=== PATIENT | male | born 1950 | race Caucasian/White ===

== ENCOUNTER → 2017-05-04 | Outpatient (CLI) | payer MEDICARE, BC ==
[~2017-05-04] MED LIST: CARV12.5 PO; CHLO125TA PO; FLINCHW5 PO; FLUO40CA PO; LOSA100T36 PO; LUTE40CA2 PO; PRAD150C PO; VITA-122 PO; VITA10002 PO
--- NOTE | 2017-05-08 08:49 | SLEEPCENT ---
DATE OF PROCEDURE: 05/04/2017 ORDERED BY: Dianne Jimenez INTERPRETATION: Nocturnal polysomnography was performed due to concern for the obstructive sleep apnea syndrome. 8 hours and 1 minute of data were reviewed. There were 372 minutes of sleep identified. Sleep latency was prolonged at 30 minutes. REM latency was normal at 78 minutes. Sleep architecture showed fragmentation. There were 3 REM periods appreciated. Overall sleep efficiency was 78%. The patient's EKG showed an irregular rhythm possibly atrial fibrillation. Ventricular response rate was 76 beats per minute. Heart rate ranged 60-90 beats per minute. EEG showed normal wave forms for awake and sleep. There were 127 respiratory events identified of 10 seconds in duration or greater for an apnea-hypopnea index of 20.5. The events were primarily obstructive not stage related, much more frequent in the supine posture but not exclusive to that posture. Respiratory events were associated with arousal 14 times per hour and oxygen desaturations into the 80s. There was also significant limb activity near continuous early in the study, improved later but the limb movement arousal index was 11.3. IMPRESSION: 1. Moderate obstructive sleep apnea syndrome (G47.33). Apnea-hypopnea index 20.5. 2. Periodic limb movement disorder (G47.61). Limb movement arousal index 11.3. RECOMMENDATION: The patient should be encouraged to return to the sleep disorder center for pressure therapy. In the interim, alcohol and sedative avoidance should be practiced and caution exercised during the operation of motor vehicles. Pending response to pressure therapy, interventions to reduce the frequency of arousals from limb activity may also be helpful.
== END ==
LOC: M SLEEP 20:00
PROVIDERS: ATTEND Nurse Practitioner Adult Health
DX: G47.33 Obstructive sleep apnea (adult) (pediatric) (principal)

== ENCOUNTER → 2017-06-02 | Outpatient (CLI) | payer MEDICARE, BC ==
--- NOTE | 2017-06-04 08:52 | SLEEPCENT ---
DATE OF PROCEDURE: 06/02/2017 REFERRING PHYSICIAN: Dianne Griffin. INTERPRETATION: Nocturnal polysomnography was performed for the re-titration of pressure therapy in this patient with obstructive sleep apnea syndrome. For testing a ResMed AirFit F20 full face mask of large size was used, 4 cm of water pressure were applied to the circuit and the lights were extinguished. A total of 7 hours and 52 minutes of data were reviewed. There were 367 minutes of sleep identified. Sleep latency was prolonged at 23 minutes. Rapid eye movement (REM) latency was prolonged at 199 minutes. Sleep architecture improved over the course of the study. There were two REM periods appreciated. Overall sleep efficiency was 78.9%. The patient's electrocardiogram (EKG) showed an irregular rhythm of atrial fibrillation with an average heart rate of 64 beats per minute. Pulse rate ranged 58-82, Electroencephalogram (EEG) showed mild coarsening and back ground, otherwise normal waveforms for awake and sleep. Best sleep was seen on a CPAP pressure of +7, with which the patient did sleep through REM late in the study. Some limb activity was identified as well. There were at leas three trains of 30 events and limb movement arousal index was 10.3. IMPRESSION: 1. Obstructive sleep apnea syndrome (G47.33). 2. Periodic limb movement disorder (G47.61). Limb movement arousal index 10.3. RECOMMENDATION: Nightly use of pressure therapy at 7 cm of water should be sufficient to address the patient's respiratory events. Interventions to reduce the frequency or arousal from limb activity are likely also to be needed to optimize the patient's sleep.
== END ==
LOC: M SLEEP 19:47
PROVIDERS: ATTEND Nurse Practitioner Adult Health
DX: G47.33 Obstructive sleep apnea (adult) (pediatric) (principal); G47.61 Periodic limb movement disorder

== ENCOUNTER 2018-06-19 16:09 | Emergency (ER) | payer MEDICARE, BC ==
[2018-06-19 16:58] LABS: BASO % 0.3 % (0.0-1.0); EOS # 0.1 10^3/uL (0.0-0.50); HEMATOCRIT 44.8 % (42.0-52.0); IMMATURE GRANULOCYTE % 0.5 % (0-3.0); LYMPH # 1.3 10^3/uL (1.5-4.5); LYMPH % 22.5 % (24.0-44.0); MEAN CORPUSCULAR HEMOGLOBIN 32.7 pg (27.0-33.0); MEAN CORPUSCULAR HGB CONC 33.5 g/dl (32.0-36.5); MEAN CORPUSCULAR VOLUME 97.6 fl (80.0-96.0); MONO # 0.4 10^3/uL (0.0-0.8); MONO % 7.3 % (0.0-5.0); NEUTROPHILS # 4.1 10^3/uL (1.8-7.7); NEUTROPHILS % 68.4 % (36.0-66.0); PLATELET COUNT, AUTOMATED 135 10^3/uL (150-450); RED BLOOD COUNT 4.59 10^6/uL (4.30-6.10); RED CELL DISTRIBUTION WIDTH 13.2 % (11.5-14.5); WHITE BLOOD COUNT 5.9 10^3/uL (4.0-10.0)
[2018-06-19] MEDS: NS 500 ML IV ×2 (17:00)
[2018-06-19] MEDS: ONDANSETRON 4MG/2ML VIAL (J2405) IV ×2 (17:00)
[2018-06-19 17:10] LABS: INR 1.09; PROTHROMBIN TIME 14.3 SECONDS (12.1-14.4)
[2018-06-19 17:11] LABS: PARTIAL THROMBOPLASTIN TIME 28.3 SECONDS (25.4-37.6)
[2018-06-19 17:26] LABS: ALBUMIN 3.8 GM/DL (3.2-5.2); ALBUMIN/GLOBULIN RATIO 1.06 (1.00-1.93); ALKALINE PHOSPHATASE 123 U/L (45-117); ALT/SGPT 33 U/L (12-78); ANION GAP 4 MEQ/L (8-16); AST/SGOT 26 U/L (7-37); BILIRUBIN,DIRECT 0.2 MG/DL (0.0-0.2); BILIRUBIN,TOTAL 0.6 MG/DL (0.2-1.0); BLOOD UREA NITROGEN 16 MG/DL (7-18); CALCIUM LEVEL 8.7 MG/DL (8.8-10.2); CARBON DIOXIDE LEVEL 32 MEQ/L (21-32); CHLORIDE LEVEL 104 MEQ/L (98-107); CPK CREATINE PHOSPHOKINASE 104 U/L (39-308); CREATININE FOR GFR 1.11 MG/DL (0.70-1.30); GLOMERULAR FILTRATION RATE > 60.0 (>49); GLUCOSE, FASTING 109 MG/DL (70-100); LIPASE 116 U/L (73-393); POTASSIUM SERUM 3.8 MEQ/L (3.5-5.1); SODIUM LEVEL 140 MEQ/L (136-145); TOTAL PROTEIN 7.4 GM/DL (6.4-8.2); TROPONIN I < 0.02 NG/ML (< 0.10)
[2018-06-19 17:32] LABS: MB/CK RELATIVE INDEX 1.92 (< OR =4); NT-PRO BNP 2247 PG/ML (<125)
[2018-06-19] MEDS: NS 1,000 ML IV ×2 (17:35)
[2018-06-19] MEDS: MORPHINE 4 MG/ML 1ML VIAL/SYRINGE (J2270) IV ×4 (17:53→20:39)
[2018-06-19] MEDS ORDERED: ISOVUE-370 76% 100ML VIAL (Q9967) As Ordered ×2 (18:20)
[2018-06-19] MEDS: PIPERACILLIN/TAZOBACTAM SOD 3.375 GM in D5W MINI-BAG PLUS 50 ML IV (20:47)
== END 2018-06-19 22:00 | disposition short-term general hospital (02) ==
LOC: M ED 16:09
DX: S36.539A Laceration of unspecified part of colon, initial encounter (principal); K91.89 Other postprocedural complications and disorders of digestive system; I48.91 Unspecified atrial fibrillation; I10 Essential (primary) hypertension; F17.200 Nicotine dependence, unspecified, uncomplicated
CPT/HCPCS: J2270

== ENCOUNTER 2019-05-20 10:45 | Outpatient (RCR) | payer MEDICARE, BC ==
[~2019-05-20 10:45] MED LIST changes: +ASPI81TA26 PO; +CYAN100049 PO; -LOSA100T36 PO; +LOSA100T50 PO; -PRAD150C PO; +PRAD150C6 PO; -VITA10002 PO
[2019-05-25] MEDS ORDERED: LEXA1TAB PO (08:32)
== END 2019-05-26 ==
LOC: M PT 10:45
PROVIDERS: ATTEND Orthopaedic Surgery
DX: Z47.89 Encounter for other orthopedic aftercare (principal); M51.36 Other intervertebral disc degeneration, lumbar region; M48.061 Spinal stenosis, lumbar region without neurogenic claudication; M47.896 Other spondylosis, lumbar region

== ENCOUNTER 2019-06-08 10:42 | Day surgery (SDC) | payer MEDICARE, BC ==
[~2019-06-08] VITALS: Ht 180.3 cm; Wt 117.9 kg
[~2019-06-08 10:42] MED LIST changes: +LEXA1TAB PO; +LIDOCAINE 2% INJ 100 MG/5 ML SDV (FOR ANES.) As Ordered ONE; +NS 1,000 ML IV ONE; +PROPOFOL 200 MG/20 ML VIAL As Ordered ONE
--- NOTE | 2019-06-08 11:44 | ROOR ---
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 Procedure: Pre-Anesthesia Assessment: - The heart rate, respiratory rate, oxygen saturations, blood pressure, adequacy of pulmonary ventilation, and response to care were monitored throughout the procedure. The Endoscope was introduced through the mouth, and advanced to the jejunum. The upper GI endoscopy was accomplished without difficulty. The patient tolerated the procedure well. Findings: Evidence of a Go-en-Y gastrojejunostomy was found. The gastrojejunal anastomosis was characterized by ulceration. This was traversed. This was biopsied with a cold forceps for histology. The examined esophagus was normal. The examined jejunum was normal. Impression: - Go-en-Y gastrojejunostomy with large (2 cm) deep post gastrojejunal anastomosis ulceration. No high risk stigmata of bleeding are seen. Biopsied. - Normal esophagus. - Normal examined jejunum. Recommendation: - Telephone endoscopist for pathology results in 2 weeks. - Use Prilosec (omeprazole) 40 mg PO BID indefinitely. - Use sucralfate tablets 1 gram PO QID for 1 month. - Repeat upper endoscopy in 3 months to check healing. - (the script was sent to your pharmacy on file) Julián Graves MD Julián GRAVES MD 06/08/2019 11:44:16 AM Electronically signed by Julián GRAVES MD Number of Addenda: 0 Note Initiated On: 06/08/2019 11:27 AM Estimated Blood Loss: Estimated blood loss: none.
[2019-06-08] MEDS ORDERED: PROPOFOL 200 MG/20 ML VIAL As Ordered ONE (11:59)
--- NOTE | 2019-06-08 12:12 | ROOR ---
Patient Name: Justice Roberts Procedure Date: 06/08/2019 11:28 AM Date of : 1950 Age: 68 Room: [facility] Gender: Male Note Status: Finalized Procedure: Colonoscopy Indications: Screening for colorectal malignant neoplasm Providers: Julián GRAVES MD Referring MD: IRIS GONZALEZ MD Requesting Provider: Medicines: Monitored Anesthesia Care Complications: No immediate complications. Procedure: Pre-Anesthesia Assessment: - The heart rate, respiratory rate, oxygen saturations, blood pressure, adequacy of pulmonary ventilation, and response to care were monitored throughout the procedure. The Colonoscope was introduced through the anus and advanced to the cecum, identified by appendiceal orifice and ileocecal valve. The colonoscopy was performed without difficulty. The patient tolerated the procedure well. The quality of the bowel preparation was good. Findings: The perianal and digital rectal examinations were normal. Two sessile polyps were found in the descending colon and ascending colon. The polyps were diminutive in size. These polyps were removed with a cold snare. Resection and retrieval were complete. Mild sigmoid diverticulosis and moderate internal hemorrhoids. The colon (entire examined portion) was moderately redundant. Advancing the scope required using manual pressure. Impression: - Two diminutive polyps in the descending colon and in the ascending colon, removed with a cold snare. Resected and retrieved. - Mild sigmoid diverticulosis and moderate internal hemorrhoids. - Redundant colon. Recommendation: - Repeat colonoscopy in 5 years for surveillance. - No ibuprofen, naproxen, or other non-steroidal anti-inflammatory drugs. Julián Graves MD Julián GRAVES MD 06/08/2019 12:11:33 PM Electronically signed by Julián GRAVES MD Number of Addenda: 0 Note Initiated On: 06/08/2019 11:28 AM Estimated Blood Loss: Estimated blood loss: none.
[2019-06-08 12:30] VITALS: BP 153/101
== END 2019-06-08 12:41 | disposition home or self-care (01) ==
LOC: M OPP 10:42
PROVIDERS: ATTEND Internal Medicine Gastroenterology
DX: Z12.11 Encounter for screening for malignant neoplasm of colon (principal); D12.4 Benign neoplasm of descending colon; D12.2 Benign neoplasm of ascending colon; Q43.8 Other specified congenital malformations of intestine; K28.4 Chronic or unspecified gastrojejunal ulcer with hemorrhage; Z98.0 Intestinal bypass and anastomosis status

== ENCOUNTER → 2019-10-25 | Outpatient (CLI) | payer MEDICARE, BC ==
[~2019-10-25] MED LIST changes: +D 202000 PO; -LIDOCAINE 2% INJ 100 MG/5 ML SDV (FOR ANES.) As Ordered ONE; -NS 1,000 ML IV ONE; +OMEP40CA97 PO; -PROPOFOL 200 MG/20 ML VIAL As Ordered ONE; +SUCR1TA PO
[2019-10-25 11:42] LABS: HEMATOCRIT 42.8 % (42.0-52.0); HEMOGLOBIN 13.9 g/dl (13.5-17.5); MEAN CORPUSCULAR HGB CONC 32.5 g/dl (32.0-36.5); MEAN CORPUSCULAR VOLUME 98.6 fl (80.0-96.0); PLATELET COUNT, AUTOMATED 135 10^3/uL (150-450); RED BLOOD COUNT 4.34 10^6/uL (4.30-6.10); WHITE BLOOD COUNT 4.7 10^3/uL (4.0-10.0)
[2019-10-25 11:52] LABS: INR 1.21
[2019-10-25 12:06] LABS: ERYTHROCYTE SEDIMENTATION RATE 7 mm/hr (0-20)
[2019-10-25 12:13] LABS: ALBUMIN 3.7 GM/DL (3.2-5.2); ALT/SGPT 24 U/L (12-78); BILIRUBIN,TOTAL 1.1 MG/DL (0.2-1.0); BLOOD UREA NITROGEN 12 MG/DL (7-18); CALCIUM LEVEL 9.1 MG/DL (8.8-10.2); CARBON DIOXIDE LEVEL 32 MEQ/L (21-32); CHLORIDE LEVEL 104 MEQ/L (98-107); CREATININE FOR GFR 1.19 MG/DL (0.70-1.30); GLOMERULAR FILTRATION RATE > 60.0 (>42); GLUCOSE, FASTING 106 MG/DL (70-100); POTASSIUM SERUM 3.9 MEQ/L (3.5-5.1); SODIUM LEVEL 140 MEQ/L (136-145); TOTAL PROTEIN 6.6 GM/DL (6.4-8.2)
--- NOTE | 2019-10-26 07:05 | ECGEPIP ---
[facility] Test Date: 2019-10-25 Pat Name: AIDEE GRAF Department: Room: - Gender: Male [employer]: [facility] : 1950 Requested By: Hua Daniel Order Number: [id number] Reading MD: Song Lozano Measurements Intervals [place] Rate: 53 P: [place]: 0 QRS: 60 QRSD: 94 T: 48 QT: 425 QTc: 400 Interpretive Statements Atrial fibrillation with a slow ventricular response Minor repolarization abnormalities No see if you change since prior tracing of 06/19/2018 Electronically Signed on 10-26-2019 7:04:52 EST by Song Lozano
== END ==
LOC: M RAD 10:40
PROVIDERS: ATTEND Orthopaedic Surgery
DX: M17.12 Unilateral primary osteoarthritis, left knee (principal); Z79.899 Other long term (current) drug therapy

== ENCOUNTER 2019-11-10 08:19 | Inpatient (IN) | payer MEDICARE, BC ==
--- NOTE | 2019-10-25 11:38 | REP ---
Two-view chest: 10/25/2019. Indication: Preoperative assessment. Comparison: 06/19/2018. Findings: The lungs are clear. There is no pleural effusion or pneumothorax. Multilevel degenerative sequelae of the thoracic spine are present. The cardiomediastinal silhouette is unremarkable. There is elevation of the left hemidiaphragm. The pressure: No acute cardiopulmonary process. Electronically Signed by Joe Kat DO 10/25/2019 11:29 A
--- NOTE | 2019-11-05 18:25 | HPE ---
DATE OF ADMISSION: 11/10/2019 ATTENDING PHYSICIAN: Dr. Hua Daniel CHIEF COMPLAINT: Left knee pain. HISTORY OF PRESENT ILLNESS: Mr. Roberts is a pleasant 69-year-old male with progressively worsening left knee pain and stiffness. He has failed to improve with conservative treatment. He has elected for surgery for his continued symptoms. He has pain with weightbearing activities and his activities of daily living. X-rays of his knee are notable for advanced osteoarthritis of the left knee joint. He has consented for a left total knee arthroplasty by Dr. Hua Daniel. Medical optimization was performed by Dr. Louise's office. ALLERGIES: No known allergies. CURRENT MEDICATIONS: - one aspirin a day - Lexapro once a day - pantoprazole 40 mg twice a day - carvedilol 125 mg once a day - chlorthalidone 25 mg half a tablet once a day - losartan 100 mg a day - vitamin D3 2000 units a day - iron supplement 324 mg a day - vitamin B12 500 mg a day PAST MEDICAL HISTORY: Includes high blood pressure and atrial fibrillation. PAST SURGICAL HISTORY: Includes right knee arthroscopy times two, left knee arthroscopy, and carpal tunnel releases on the right. SOCIAL HISTORY: This gentleman is retired. He quit smoking, did have 1-2 cigarettes a week several years ago. Occasionally drinks alcohol. FAMILY HISTORY: Noncontributory. REVIEW OF SYSTEMS: The patient denies chest pain, heart palpitations, cough, wheezing, difficulty breathing and shortness of breath. He denies abdominal pain, nausea, vomiting, diarrhea or constipation. He denies recent upper respiratory infection and urinary tract infection symptoms. He does complain of persistent pain in his left knee and pain with weightbearing activities in the left knee. PHYSICAL EXAMINATION: GENERAL: He is a well-nourished, well-developed, in no acute distress, alert male patient. He ambulates with a moderate limp favoring the left lower extremity. He is not using assistive devices. VITAL SIGNS: He is 67 inches tall, weighs 257.4 pounds, temperature 97.1, blood pressure 130/80, pulse 62, respirations of 15. Neck was supple without adenopathy or jugular venous distension. Lungs were clear to auscultation without rales or wheeze. Heart showed an irregular rate and rhythm. No murmurs, gallops or rubs. ABDOMEN: Bowel sounds were present. EXTREMITIES: Examination of the knee revealed intact skin. The patient had decreased range of motion due pain and stiffness. The limb is neurovascularly intact. LABORATORY DATA: Prothrombin time 15.0, INR 1.21. CBC showed an MCV of 98.6 and a platelet count of 135, sedimentation rate of 7, otherwise within normal limits. Glucose 106, BUN 12, creatinine 1.19, sodium 140, potassium 3.9. Chest x-ray showed no acute cardiopulmonary disease processes. EKG showed atrial fibrillation with slow ventricular response at 53 beats per minute. IMPRESSION: Symptomatic osteoarthritis of the left knee joint. PLAN: Consented for a left total knee arthroplasty by Dr. Hua Daniel.
[~2019-11-10] VITALS: Ht 180.3 cm; Wt 117.9 kg
[~2019-11-10 08:19] MED LIST changes: +LIDOCAINE 1% MDV 20ML VIAL SQ PRN; +LR 1,000 ML IV ONE; +ceFAZolin SOD 1 GM in D5W MINI-BAG PLUS 50 ML IV ONE; +ceFAZolin SOD 2 GM in IV 1 EA IV ONE
--- NOTE | 2019-11-10 09:33 | IPN ---
DATE: 11/10/2019 The patient is seen and examined. He wished to go ahead with a left total knee arthroplasty. He understands the nature of this, the risks of bleeding, infection, damage to nerves, vessels, persistent pain, wear loosening, blood clots, medical problems, , among others. He understands that his obesity and BMI make him a substantially higher risk for perioperative complications. Preop clearance was obtained.
[2019-11-10] MEDS ORDERED: propofoL 200 MG/20 ML VIAL As Ordered ONE ×3 (09:39→11:25)
[2019-11-10] MEDS ORDERED: MIDAZOLAM INJ 2 MG/2 ML VIAL (J2250) As Ordered ONE ×2 (09:39→10:28)
[2019-11-10] MEDS ORDERED: TRANEXAMIC ACID 100 MG/ML 10ML VIAL As Ordered ONE ×2 (10:05→10:31)
[2019-11-10] MEDS ORDERED: ceFAZolin 1GM INJ (J0690 PER 500MG) As Ordered ONE (10:05)
[2019-11-10] MEDS ORDERED: EPINEPHrine INJ 1 MG/ML 1ML VIAL As Ordered ONE ×2 (10:06→10:31)
[2019-11-10] MEDS ORDERED: BUPIVACAINE LIPOSOME/PF 1.3% 20ML VIAL (13.3MG/ML)(EXPAREL)(C9290 PER1MG) As Ordered ONE (10:06)
[2019-11-10] MEDS ORDERED: fentaNYL 100 MCG/2 ML INJECTION (J3010) As Ordered ONE (10:28)
[2019-11-10] MEDS ORDERED: fentaNYL 100 MCG/2 ML INJECTION (J3010) IV ONE (11:00)
[2019-11-10] MEDS ORDERED: MIDAZOLAM INJ 2 MG/2 ML VIAL (J2250) IV ONE (11:00)
[2019-11-10] MEDS ORDERED: ceFAZolin SOD 1 GM in D5W MINI-BAG PLUS 50 ML IV SCH (13:15)
[2019-11-10] MEDS ORDERED: ceFAZolin SOD 2 GM in IV 1 EA IV SCH (13:15)
[2019-11-10] MEDS ORDERED: BUPIVACAINE/EPIN 0.25% 30 ML VIAL ONE (13:30)
[2019-11-10] MEDS ORDERED: dexameTHASONE 10 MG/1 ML VIAL PRES.FREE (J1100) ONE (13:30)
[2019-11-10] MEDS ORDERED: LIDOCAINE 1% MDV 20ML VIAL ONE (13:30)
[2019-11-10] MEDS ORDERED: fentaNYL 100 MCG/2 ML INJECTION (J3010) IV PRN (14:00)
[2019-11-10] MEDS ORDERED: ONDANSETRON 4MG/2ML VIAL (J2405) IV PRN ×2 (14:00→15:00)
[2019-11-10] MEDS ORDERED: oxyCODONE 5MG TAB PO PRN (14:00)
[2019-11-10] MEDS ORDERED: LR 1,000 ML IV SCH ×2 (14:00→15:00)
--- NOTE | 2019-11-10 14:11 | REP ---
LEFT KNEE, TWO VIEWS: Two views left knee performed. There is a total knee prosthesis in good position. Structures are intact and well aligned. Metallic skin valentina are seen anteriorly. Postsurgical air is seen anteriorly in the soft tissues. Electronically Signed by Matt Jimenez MD 11/10/2019 05:39 P
[2019-11-10] MEDS ORDERED: ACETAMINOPHEN TAB 650MG DOSE (2X325MG) PO PRN (15:00)
[2019-11-10] MEDS ORDERED: MORPHINE 2 MG/ML 1ML VIAL (J2270) IV PRN ×2 (15:00)
[2019-11-10 15:13] VITALS: BP 170/112
[2019-11-10 15:39] VITALS: BP 169/114
--- NOTE | 2019-11-10 15:56 | CR.PDOC ---
General Date of Consultation: Nov 10, 2019 Consultation REASON FOR CONSULTATION/CHIEF COMPLAINT: L. knee pain HISTORY OF PRESENT ILLNESS: Patient is 69M with PMH OA with chronic L. knee pain, Afib, HTN, KARLA presented for L. knee TKA now post op. He reports having ongoing pain in his L knee due to arthritis for a period of time not relieved with conservative therapy. He currently denies any pain/discomfort in his knee or anywhere on his body. Reports no other complaints including chest pain, SOB, fever, chills, nausea, vomiting. PAST MEDICAL HISTORY: Refer to HPI PAST SURGICAL HISTORY: R&Y bypass surgery b/l knee surgery Cholecystectomy Appendectomy SOCIAL HISTORY: Occasional cigar and social alcohol Denies illicit drug use. FAMILY HISTORY: Father- Parkinson disease Mother- Pick's disease ALLERGIES: Please see below. REVIEW OF SYSTEMS: 10 point review of system negative except as stated in HPI HOME MEDICATIONS: Please see below. PHYSICAL EXAMINATION: General: Alert Eyes: Normal sclera, EOMI HENT: Atraumatic Cardiovascular: Normal rate, normal rhythm. Pulmonary: Clear to auscultation b/l, no wheezing GI: Soft, nontender, nondistended MSK: LLE in dressing with numbness at this time, not tender to palpation. Skin: Warm and dry Neuro: CN grossly intact. No focal deficits. Psych: oriented x 3 LABORATORY DATA: See below. IMAGING: L. knee XR- Two views left knee performed. There is a total knee prosthesis in good position. Structures are intact and well aligned. Metallic skin valentina are seen anteriorly. Postsurgical air is seen anteriorly in the soft tissues. MICROBIOLOGY: Please see below. ASSESSMENT AND PLAN: 1. L. knee OA s/p L. TKA - Pain control. Orthopedic following. - PT eval and treatment. - Xarelto for VTE ppx. 2. HTN - c/w Coreg, chlorthalidone and Losartan. - Monitor BP. 3. Afib - previously on Pradaxa but held due to PUD bleed. - rate controlled on BB. - On Xarelto for Orthopedic surgery for VTE ppx but not dosed for Afib. 4. KARLA - Night time CPAP at home. 5. PUD - Supposed to get endoscopy to evaluate ulcer as outpatient but need to move back due to knee surgery. - Previously on Pradaxa for Afib but held due to bleed. - on VTE ppx dose of Xarelto now, unsure if the risk outweights the benefits at this time. - Will monitor Hb and evidence of bleed. If hb drops or bleeding noted, would recommend stopping Xarelto. DVT ppx: Xarelto Vital Signs/I&O Vital Signs Date Time Temp Pulse Resp B/P (MAP) Pulse Ox O2 Delivery O2 Flow Rate FiO2 11/10/19 14:15 67 18 177/96 (123) 98 Room Air 11/10/19 13:55 97.1 11/10/19 11:00 2 Allergies Coded Allergies: No Known Allergies (Unverified , 05/25/19) Home Medications Scheduled Aspirin (Aspirin EC) 81 Mg Tab, 1 TAB PO DAILY for pain for 30 Days, #30 (Reported) Carvedilol (Carvedilol) 12.5 Mg Tab, 12.5 MG PO BID, (Reported) Chlorthalidone (Chlorthalidone) 12.5 Mg Halftab, 12.5 MG PO QPM, (Reported) Cholecalciferol (Vitamin D3) (Vitamin D3) 2,000 Unit Tablet, 2,000 UNIT PO DAILY, (Reported) Cyanocobalamin (Vitamin B-12) (Vitamin B-12) 1,000 Mcg Tab, 1,000 MCG PO DAILY, (Reported) Escitalopram Oxalate (Lexapro) 10 Mg Tablet, 20 MG PO DAILY, (Reported) Losartan Potassium (Losartan Potassium) 100 Mg Tab, 100 MG PO DAILY, (Reported) Lutein (Lutein) 40 Mg Cap, 40 MG PO DAILY, (Reported) Omeprazole (Omeprazole) 40 Mg Capsule.dr, 40 MG PO BID, (Reported) Sucralfate (Sucralfate) 1 Gm Tablet, 1 GM PO ACHS, (Reported) NOVA CHRISTOPHER MD Nov 10, 2019 15:56
[2019-11-10 16:10] VITALS: BP 158/100
[2019-11-10] MEDS: LOSARTAN 50 MG TAB PO SCH (16:16)
[2019-11-10 16:45] VITALS: BP 165/85
[2019-11-10] MEDS: SUCRALFATE 1 GM TAB PO SCH ×2 (17:18→20:52)
[2019-11-10 17:45] VITALS: BP 155/80
[2019-11-10] MEDS: ceFAZolin SOD 1 GM in D5W MINI-BAG PLUS 50 ML IV SCH (18:49)
[2019-11-10 20:41] VITALS: BP 163/95
[2019-11-10] MEDS: OMEPRAZOLE 20 MG CAP PO SCH (20:51)
[2019-11-10] MEDS: ceFAZolin SOD 2 GM in IV 1 EA IV SCH (20:51)
[2019-11-10] MEDS: CARVedilol 12.5 MG TAB PO SCH (20:52)
[2019-11-10] MEDS: PERCOCET 5MG/325MG TAB PO PRN (20:52)
[2019-11-10] MEDS ORDERED: CHLORTHALIDONE 12.5MG PER 1/2 TABLET PO SCH (21:00)
[2019-11-11] MEDS: PERCOCET 5MG/325MG TAB PO PRN ×3 (01:09→12:10)
[2019-11-11 02:43] VITALS: BP 123/80
[2019-11-11] MEDS: ceFAZolin SOD 1 GM in D5W MINI-BAG PLUS 50 ML IV SCH (03:32)
[2019-11-11] MEDS: ceFAZolin SOD 2 GM in IV 1 EA IV SCH (04:28)
[2019-11-11 06:19] VITALS: BP 123/82
[2019-11-11] MEDS ORDERED: PERC5TAB12 PO (06:41)
[2019-11-11] MEDS ORDERED: XARE10TA PO (06:41)
[2019-11-11 07:37] LABS: BLOOD UREA NITROGEN 15 MG/DL (7-18); CALCIUM LEVEL 8.4 MG/DL (8.8-10.2); CARBON DIOXIDE LEVEL 28 MEQ/L (21-32); CHLORIDE LEVEL 105 MEQ/L (98-107); CREATININE FOR GFR 1.11 MG/DL (0.70-1.30); GLOMERULAR FILTRATION RATE > 60.0 (>42); GLUCOSE, FASTING 129 MG/DL (70-100); POTASSIUM SERUM 3.6 MEQ/L (3.5-5.1); SODIUM LEVEL 139 MEQ/L (136-145)
[2019-11-11 07:42] LABS: HEMATOCRIT 36.1 % (42.0-52.0); HEMOGLOBIN 11.6 g/dl (13.5-17.5); MEAN CORPUSCULAR HEMOGLOBIN 31.3 pg (27.0-33.0); MEAN CORPUSCULAR HGB CONC 32.1 g/dl (32.0-36.5); MEAN CORPUSCULAR VOLUME 97.3 fl (80.0-96.0); PLATELET COUNT, AUTOMATED 132 10^3/uL (150-450); RED BLOOD COUNT 3.71 10^6/uL (4.30-6.10); WHITE BLOOD COUNT 8.2 10^3/uL (4.0-10.0)
[2019-11-11] MEDS: SUCRALFATE 1 GM TAB PO SCH ×2 (08:19→12:09)
[2019-11-11] MEDS: OMEPRAZOLE 20 MG CAP PO SCH (08:19)
[2019-11-11] MEDS: CARVedilol 12.5 MG TAB PO SCH (08:23)
[2019-11-11 08:24] VITALS: BP 108/68
[2019-11-11] MEDS: LOSARTAN 50 MG TAB PO SCH (08:24)
[2019-11-11] MEDS ORDERED: propofoL 200 MG/20 ML VIAL As Ordered ONE (08:31)
[2019-11-11] MEDS ORDERED: LIDOCAINE 2% INJ 100 MG/5 ML SDV (FOR ANES.) As Ordered ONE (08:31)
[2019-11-11] MEDS ORDERED: MOM 30ML SUSPENSION UDC PO SCH (09:00)
[2019-11-11] MEDS ORDERED: ESCITALOPRAM OXALATE 10 MG TAB (LEXAPRO) PO SCH (09:00)
[2019-11-11] MEDS ORDERED: ASPIRIN 81 MG ENTERIC TAB PO SCH (09:00)
[2019-11-11] MEDS ORDERED: MIRALAX *UNIT DOSE* 17GM PACKET PO SCH (09:00)
--- NOTE | 2019-11-11 10:02 | RO ---
DATE OF PROCEDURE: 11/10/2019 PREOPERATIVE DIAGNOSIS: Left knee osteoarthritis. POSTOPERATIVE DIAGNOSIS: Left knee osteoarthritis. PROCEDURE: Left total knee arthroplasty using an Attune rotating platform, posterior stabilized size 8 femur and 8 tibia, 6 polyethylene, 38 patellar button. SURGEON: Hua Daniel MD COTTON BUYER: Yonis Jackson PA-C ESTIMATED BLOOD LOSS (EBL): 50. COMPLICATIONS: None. INDICATIONS: A 69-year-old gentleman who has had gradually worsening knee pain with severe arthritis. He wished to go ahead with a knee replacement. DESCRIPTION OF PROCEDURE: The patient was taken to the operating room, placed in supine position after spinal anesthesia was induced. The left lower extremity was prepped and draped in the usual sterile fashion. Time-out was performed. Tourniquet was inflated. A longitudinal incision was made over the anterior aspect of the knee. Sharp dissection was carried down through subcutaneous tissue. I performed a medial parapatellar arthrotomy per routine, flexed the knee up. This was really fairly difficult. I had to extend the incision in both directions in order to get the patella everted and the knee flexed up. I removed some osteophytes. I used a canal-initiating reamer on the femoral side, followed by the intramedullary guide set at 5 degrees of valgus and a 9-mm cut. This was pinned in placed, and the distal femoral cut was made. I protected soft tissues at all times. I then sized the femur to be an 8. Drill holes were placed in the end of the femur with the external rotation dialed in, and the cutting block was secured. I then made the remaining four cuts, which were relatively challenging given the size of the knee and difficulty with exposure and protecting soft tissues which we were able to do. I then placed the posterior retractor. I removed any osteophytes from around the knee and used the tibial alignment guide set at the appropriate amount of valgus and posterior slope. The proximal tibia cut was made, and I decided based on the flexion/extension gap at this point to take 2 more millimeters off the tibial side, which was done. I was able to protect the posterior cruciate ligament (PCL). I then used the sulcus guide to prepare the end of the femur, and the size 8 tibial tray fit nicely on the tibia. This was drilled and broached, and the trial components were placed, however, in flexion. The femoral component seemed to be pulled off, indicating that it was tight in flexion, even though I had dialed in the appropriate amount of posterior slope. I elected to go with posterior stabilized knee at this point. I was not going to be satisfied with the cruciate-retaining, given some tightness of the PCL. I went ahead with the box cut at this point and removed the center bone, removed the PCL, and placed the trial components. I had used a spacer block prior to this 7 polyethylene. I had also removed soft tissue and osteophytes from both sides of the knee prior to placement of the trial components. Once the posterior stabilized knee trial components were placed, I was much more satisfied with the range of motion. There was no pulling off of the femoral component, no spitting out of the polyethylene with flexion, and I was able to gain full extension with excellent stability in varus and valgus stress and excellent alignment. I had also done a medial release at the beginning of the procedure. The patella was then prepared. I freehand cut, removing about 7-8 mm of bone. I sized this to be a 38. Drill holes were placed, the trial button was placed, and the patella tracked quite nicely. I also placed drill holes in the end of the femur. The computer lab assistant prepared the bone cement in the modern technique, and I was able to then copiously irrigate the bony surfaces, dried them carefully, and injected the Exparel in the deep tissues. I then cemented on the components, removing excess bone cement. The polyethylene was inserted and again very pleased with the range of motion and stability. I cemented on the patella, held it in place with the patellar clamp, irrigated, placed the tranexamic acid (TXA) deep in the tissues, repaired the deep layer with #1 Vicryl suture in an interrupted fashion followed by a running Stratafix suture. The patellar clamp had been removed once the cement had hardened. Once the deep layer was closed, I deflated the tourniquet. I irrigated again and repaired the subcutaneous with 2-0 Vicryl and the skin with valentina. Sterile dressing was applied. He was taken to the recovery room in stable condition. There were no known complications. The plan will be routine postoperative. The computer lab assistant was instrumental in holding retractors and assisting in wound closure and assisting in mixing the bone cement and assisting in a fairly difficult exposure to the knee. This is coded as an unusually difficult procedure because of the patient's morbid obesity. He had a very large knee. This made exposure very difficult, and the size of the bone also added to the difficulty of the procedure, and we did have to convert to a posterior stabilized which added additional time.
--- NOTE | 2019-11-11 14:14 | IPNPDOC ---
Date Seen The patient was seen on 11/11/19. Progress Note SUBJECTIVE: Patient appears comfortable, reports some discomfort in the knee but no signi ficant pain. Discharged by primary and getting ready to go home. No acute events reported overnight. No bleeding reported. OBJECTIVE PHYSICAL EXAMINATION: General: Alert Eyes: Normal sclera, EOMI HENT: Atraumatic Cardiovascular: Normal rate, normal rhythm. Pulmonary: Clear to auscultation b/l, no wheezing GI: Soft, nontender, nondistended MSK: LLE in dressing with partial saturating Skin: Warm and dry Neuro: CN grossly intact. No focal deficits. Psych: oriented x 3 LABORATORY DATA: See below. IMAGING: L. knee XR- Two views left knee performed. There is a total knee prosthesis in good position. Structures are intact and well aligned. Metallic skin valentina are seen anteriorly. Postsurgical air is seen anteriorly in the soft tissues. MICROBIOLOGY: Please see below. ASSESSMENT AND PLAN: 1. L. knee OA s/p L. TKA - Pain control. Orthopedic following. - PT eval and treatment. - Xarelto for VTE ppx. 2. HTN - c/w Coreg, chlorthalidone and Losartan. - Monitor BP. 3. Afib - previously on Pradaxa but held due to PUD bleed. - rate controlled on BB. - On Xarelto for Orthopedic surgery for VTE ppx but not dosed for Afib. 4. KARLA - Night time CPAP at home. 5. PUD - Supposed to get endoscopy to evaluate ulcer as outpatient but need to move back due to knee surgery. - Previously on Pradaxa for Afib but held due to bleed. - monitor for evidence of bleed. If hb drops or bleeding noted, would recommend stopping Xarelto. DVT ppx: Xarelto VS, I&O, 24H, Fishbone Vital Signs/I&O Vital Signs Date Time Temp Pulse Resp B/P (MAP) Pulse Ox O2 Delivery O2 Flow Rate FiO2 11/11/19 12:10 18 11/11/19 08:24 108/68 11/11/19 08:23 74 11/11/19 06:19 97.4 98 11/11/19 02:43 Room Air 11/10/19 11:00 2 I&O- Last 24 Hours up to 6 AM 11/11/19 06:00 Intake Total 2530 ml Output Total 700 ml Balance 1830 ml Laboratory Data 24H LABS Laboratory Tests 2 11/11/19 06:38: Nucleated Red Blood Cells % (auto) 0.0, Anion Gap 6L, Glomerular Filtration Rate > 60.0, Calcium Level 8.4L CBC/BMP Laboratory Tests 11/11/19 06:38 NOVA CHRISTOPHER MD Nov 11, 2019 14:14
[2019-11-11] MEDS ORDERED: RIVAROXABAN 10 MG TAB (XARELTO) PO SCH (18:00)
== END 2019-11-11 13:00 | disposition home or self-care (01) | DRG 470 ==
LOC: M OR 08:19 → M MS5PR 14:45
PROVIDERS: ADMIT Orthopaedic Surgery; ATTEND Orthopaedic Surgery
PROC: 0SRD0J9 Replacement of Left Knee Joint with Synthetic Substitute, Cemented, Open Approach (ICD-10-PCS; principal; 2019-11-10 10:30)
DX: M17.12 Unilateral primary osteoarthritis, left knee (principal); I10 Essential (primary) hypertension; I48.91 Unspecified atrial fibrillation; Z79.899 Other long term (current) drug therapy; G47.33 Obstructive sleep apnea (adult) (pediatric); Z79.82 Long term (current) use of aspirin; K27.9 Peptic ulcer, site unspecified, unspecified as acute or chronic, without hemorrhage or perforation

== ENCOUNTER → 2020-03-28 | Outpatient (CLI) | payer MEDICARE, BC ==
[~2020-03-28] MED LIST changes: +ALLE24TA7 PO; +ECOT81TA5 PO; -LIDOCAINE 1% MDV 20ML VIAL SQ PRN; -LR 1,000 ML IV ONE; +PERC5TAB12 PO; +VITAD1000T PO; +XARE10TA PO; -ceFAZolin SOD 1 GM in D5W MINI-BAG PLUS 50 ML IV ONE; -ceFAZolin SOD 2 GM in IV 1 EA IV ONE
== END ==
LOC: M LABSMTC 09:37
PROVIDERS: ATTEND Anesthesiology
DX: Z01.818 Encounter for other preprocedural examination (principal); Z11.59 Encounter for screening for other viral diseases
CPT/HCPCS: C9803; U0003

== ENCOUNTER 2020-03-31 06:57 | Day surgery (SDC) | payer MEDICARE, BC ==
[~2020-03-31] VITALS: Ht 180.3 cm; Wt 120.8 kg
[2020-03-31] MEDS ORDERED: NS 1,000 ML IV ONE (08:15)
[2020-03-31] MEDS ORDERED: propofoL 200 MG/20 ML VIAL As Ordered ONE (08:17)
[2020-03-31] MEDS ORDERED: LIDOCAINE 2% 100MG/5ML SDV (FOR ANES.) As Ordered ONE (08:18)
[2020-03-31] MEDS ORDERED: CETACAINE SPRAY 5GM As Ordered ONE (08:47)
--- NOTE | 2020-03-31 08:53 | ROOR ---
Patient Name: Justice Roberts Procedure Date: 03/31/2020 8:32 AM Date of : 1950 Age: 69 Room: [facility] Gender: Male Note Status: Finalized Procedure: Upper GI endoscopy Indications: Follow-up of ulcer of the GI tract Providers: Julián GRAVES MD Referring MD: IRIS GONZALEZ MD Requesting Provider: Medicines: Monitored Anesthesia Care Complications: No immediate complications. Procedure: Pre-Anesthesia Assessment: - The heart rate, respiratory rate, oxygen saturations, blood pressure, adequacy of pulmonary ventilation, and response to care were monitored throughout the procedure. The Endoscope was introduced through the mouth, and advanced to the jejunum. The upper GI endoscopy was accomplished without difficulty. The patient tolerated the procedure well. Findings: The Z-line was variable. This was biopsied with a cold forceps for histology. 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 The gastrojejunal anastomosis was characterized by ulceration. This was biopsied with a cold forceps for histology. The examined jejunum was normal. Impression: - Z-line variable. Biopsied. - Go-en-Y gastrojejunostomy with gastrojejunal anastomosis characterized by a single 8 mm shallow erosion/ulceration on the jejunal side of anastomosis.(significantly improved from previous exam). Biopsied. - Normal examined jejunum. Recommendation: - Telephone endoscopist for pathology results in 2 weeks. - Use sucralfate tablets 1 gram PO BID. - Use Prilosec (omeprazole) 40 mg PO BID. - Observe patient's clinical course. Julián Graves MD Julián GRAVES MD 03/31/2020 8:52:42 AM Electronically signed by Julián GRAVES MD Number of Addenda: 0 Note Initiated On: 03/31/2020 8:32 AM Estimated Blood Loss: Estimated blood loss: none.
[2020-03-31 09:20] VITALS: BP 165/87
== END 2020-03-31 09:27 | disposition home or self-care (01) ==
LOC: M OPP 06:57
PROVIDERS: ATTEND Internal Medicine Gastroenterology
DX: K22.8 Other specified diseases of esophagus (principal); K28.9 Gastrojejunal ulcer, unspecified as acute or chronic, without hemorrhage or perforation; Z98.0 Intestinal bypass and anastomosis status; Z79.891 Long term (current) use of opiate analgesic; Z79.899 Other long term (current) drug therapy

== ENCOUNTER → 2020-10-17 | Outpatient (CLI) | payer SELFPAY ==
[~2020-10-17] MED LIST changes: +D31000TA2 PO; -VITAD1000T PO
== END ==
LOC: M LABSMTC 13:38
PROVIDERS: ATTEND Pediatrics
DX: Z20.828 Contact with and (suspected) exposure to other viral communicable diseases (principal)

== ENCOUNTER → 2020-11-06 | Outpatient (CLI) | payer MEDICARE, BC ==
[~2020-11-06] MED LIST changes: +GASTROGRAFIN SOLUTION 30ML (Q9963) As Ordered ONE; +ISOVUE-370 76% 100ML VIAL As Ordered ONE
--- NOTE | 2020-11-06 10:58 | REP ---
INDICATION: POST BARIATIC SURGERY, PERITONEAL ABSCESS. COMPARISON: 06/19/2018 TECHNIQUE: Axial contrast-enhanced images from the lung bases to the pubic symphysis using 100 cc Isovue 370 intravenous contrast material. Coronal and sagittal reformations obtained. This CT examination was performed using the following dose reduction techniques: Automated exposure control, adjustment of mA and/or kv according to the patient's size, and the use of iterative reconstruction technique. FINDINGS: Lung bases are clear. Visualized heart and pericardium normal. Atherosclerotic changes to the coronary arteries noted. Patient is again noted to be status post gastric bypass surgery and cholecystectomy. Liver, pancreas, bilateral adrenal glands and kidneys are normal. The spleen is relatively normal although subtle round 2.5 cm hypodense lesions possibly representing cysts cannot be excluded. Small and large bowel is without obstruction or acute inflammatory process. Few sigmoid diverticula suggested without acute diverticulitis. Pelvis demonstrates normal bladder and age-appropriate prostate/seminal vesicles. There is a 3.5 cm round soft tissue density in the inferior aspect of the left rectus muscle (images [id number]) which may represent small intramuscular hematoma and should be correlated with physical examination. No ascites. No free air. No adenopathy. Abdominal aorta and vasculature without aneurysm or dissection. Musculoskeletal structures demonstrate degenerative changes. IMPRESSION: 1. 3.5 cm round lesion in the left rectus muscle possibly representing hematoma and correlation is required. 2. Subtle relatively benign appearing 2.5 cm hypodense lesion in the spleen may represent small cysts. Consider outpatient ultrasound evaluation if necessary. 3. No ascites, focal inflammatory stranding, adenopathy, or drainable collection/abscess. <Electronically signed by Ciro Fonseca > 11/06/20 [id number]
== END ==
LOC: M RAD 09:48
PROVIDERS: ATTEND Physician Assistant
DX: D37.8 Neoplasm of uncertain behavior of other specified digestive organs (principal); K65.1 Peritoneal abscess; R58 Hemorrhage, not elsewhere classified; Z98.84 Bariatric surgery status
CPT/HCPCS: 74177; Q9963; Q9967

== ENCOUNTER 2021-02-22 11:25 | Emergency (ER) | payer MEDICARE, BC ==
[~2021-02-22] VITALS: Ht 180.3 cm; Wt 124.8 kg
[~2021-02-22 11:25] MED LIST changes: -GASTROGRAFIN SOLUTION 30ML (Q9963) As Ordered ONE; -ISOVUE-370 76% 100ML VIAL As Ordered ONE
--- NOTE | 2021-02-22 12:46 | REP ---
INDICATION: pain/swelling L, r/o torsion. COMPARISON: None. TECHNIQUE: Real-time sonographic evaluation of scrotum and contents performed. FINDINGS: The testicles are normal in size and echotexture, right testicle measuring 4.9 x 2.2 x 2.6 cm and left testicle 4.2 x 3.2 x 3.1 cm. There is no testicular mass or torsion. Blood flow is seen in each testicle with duplex Doppler evaluation. There is a 5 mm cyst in the head of the right epididymis. There is a moderate left hydrocele, with fluid containing debris. There are multiple thin septations throughout the hydrocele. IMPRESSION: No testicular mass or torsion. Moderate complex left hydrocele. <Electronically signed by Matt Jimenez > 02/22/21 [id number]
[2021-02-22] MEDS ORDERED: [UNRECOGNIZED DRUG - CODE] PO (12:55)
[2021-02-22] MEDS ORDERED: MISO200T56 PO (12:55)
[2021-02-22] MEDS ORDERED: ZINC30CA PO (12:55)
[2021-02-22] MEDS ORDERED: AMLO1TAB24 PO (12:55)
[2021-02-22 13:02] LABS: BASO % 0.3 % (0.0-1.0); EOS % 0.4 % (0.0-3.0); HEMATOCRIT 38.7 % (42.0-52.0); HEMOGLOBIN 12.5 g/dl (13.5-17.5); LYMPH # 0.5 10^3/uL (1.5-5.0); LYMPH % 6.8 % (24.0-44.0); MEAN CORPUSCULAR HEMOGLOBIN 31.6 pg (27.0-33.0); MEAN CORPUSCULAR HGB CONC 32.3 g/dl (32.0-36.5); MEAN CORPUSCULAR VOLUME 97.7 fl (80.0-96.0); MONO # 0.6 10^3/uL (0.0-0.8); MONO % 8.5 % (2.0-8.0); NEUTROPHILS # 5.9 10^3/uL (1.5-8.5); NEUTROPHILS % 83.6 % (36.0-66.0); PLATELET COUNT, AUTOMATED 114 10^3/uL (150-450); RED BLOOD COUNT 3.96 10^6/uL (4.30-6.10); WHITE BLOOD COUNT 7.1 10^3/uL (4.0-10.0)
[2021-02-22 13:22] LABS: BLOOD UREA NITROGEN 14 MG/DL (7-18); CALCIUM LEVEL 8.5 MG/DL (8.8-10.2); CARBON DIOXIDE LEVEL 29 MEQ/L (21-32); CHLORIDE LEVEL 103 MEQ/L (98-107); CREATININE FOR GFR 1.22 MG/DL (0.70-1.30); GLOMERULAR FILTRATION RATE > 60.0 (>42); GLUCOSE, FASTING 122 MG/DL (70-100); POTASSIUM SERUM 3.5 MEQ/L (3.5-5.1); SODIUM LEVEL 136 MEQ/L (136-145)
[2021-02-22] MEDS ORDERED: CIPROFLOXACIN 500MG TABLET PO ONE (15:10)
[2021-02-22 15:20] VITALS: BP 137/78
[2021-02-22] MEDS ORDERED: CIPR-249 PO (15:23)
--- NOTE | 2021-02-24 16:08 | ED PDOC ---
Post-Departure Follow-Up scrotal us faxed to aurelia rincon and rai for fu Brinda Lazaro MD February 24, 2021 16:08
== END 2021-02-22 15:34 | disposition home or self-care (01) ==
LOC: M ED 11:25
DX: N43.3 Hydrocele, unspecified (principal); N39.0 Urinary tract infection, site not specified; I48.91 Unspecified atrial fibrillation; K21.9 Gastro-esophageal reflux disease without esophagitis; F32.9 Major depressive disorder, single episode, unspecified; Z79.899 Other long term (current) drug therapy

== ENCOUNTER → 2021-03-08 | Outpatient (REF) | payer MEDICARE, BC ==
[~2021-03-08] MED LIST changes: +AMLO1TAB24 PO; +CIPR-249 PO; +MISO200T56 PO; +ZINC30CA PO; +[UNRECOGNIZED DRUG - CODE] PO
[2021-03-08 17:39] LABS: APPEARANCE, URINE CLEAR (CLEAR); BACTERIA, URINE AUTO NEGATIVE (NEGATIVE); BILIRUBIN, URINE AUTO NEGATIVE (NEGATIVE); BLOOD, URINE BLOOD NEGATIVE (NEGATIVE); COLOR, URINE YELLOW (YELLOW); GLUCOSE, URINE (UA) AUTO NEGATIVE (NEGATIVE); KETONE, URINE AUTO NEGATIVE (NEGATIVE); LEUKOCYTE ESTERASE, URINE AUTO NEGATIVE (NEGATIVE); NITRITE, URINE AUTO NEGATIVE (NEGATIVE); PROTEIN, URINE AUTO NEGATIVE (NEGATIVE); RBC, URINE AUTO 0 /HPF (0-3); SQUAMOUS EPITHELIAL CELL UR AU 0 /HPF (0-6); UROBILINOGEN, URINE AUTO 0.2 mg/dL (0.0-2.0); WBC, URINE AUTO 0 /HPF (0-3)
== END ==
LOC: M SMT 16:38
PROVIDERS: ATTEND Nurse Practitioner Women's Health
DX: N39.0 Urinary tract infection, site not specified (principal)
CPT/HCPCS: 51798; 81001; 87086; G0463

== ENCOUNTER → 2022-04-16 | Outpatient (CLI) | payer MEDICARE, BC ==
[~2022-04-16] MED LIST changes: -D31000TA2 PO; +LOSA100T45 PO; -LOSA100T50 PO; +OMEP40CA4 PO; -OMEP40CA97 PO; +VITA100093 PO
[2022-04-16 14:05] LABS: HEMATOCRIT 43.3 % (42.0-52.0); HEMOGLOBIN 14.1 g/dl (13.5-17.5); MEAN CORPUSCULAR HEMOGLOBIN 32.3 pg (27.0-33.0); MEAN CORPUSCULAR HGB CONC 32.6 g/dl (32.0-36.5); MEAN CORPUSCULAR VOLUME 99.3 fl (80.0-96.0); PLATELET COUNT, AUTOMATED 156 10^3/uL (150-450); RED BLOOD COUNT 4.36 10^6/uL (4.30-6.10)
[2022-04-16 14:39] LABS: HEMOGLOBIN A1c 5.3 %
[2022-04-16 15:46] LABS: ALBUMIN 3.9 GM/DL (3.2-5.2); ALT/SGPT 23 U/L (12-78); BILIRUBIN,TOTAL 0.7 MG/DL (0.2-1.0); BLOOD UREA NITROGEN 16 MG/DL (7-18); CALCIUM LEVEL 9.6 MG/DL (8.8-10.2); CARBON DIOXIDE LEVEL 29 MEQ/L (21-32); CHLORIDE LEVEL 104 MEQ/L (98-107); CHOLESTEROL LEVEL 143 MG/DL (<200); CHOLESTEROL RISK RATIO 2.234 (<5); GLOMERULAR FILTRATION RATE > 60.0 (>42); GLUCOSE, FASTING 92 MG/DL (70-100); HDL CHOLESTEROL 64 MG/DL (>40); LDL CHOLESTEROL 65 MG/DL (<100); NON-HDL-C 79 MG/DL; POTASSIUM SERUM 4.7 MEQ/L (3.5-5.1); SODIUM LEVEL 141 MEQ/L (136-145); TOTAL PROTEIN 7.1 GM/DL (6.4-8.2); TRIGLYCERIDES LEVEL 72 MG/DL (<150)
== END ==
LOC: M PLALAB 10:36
PROVIDERS: ATTEND Nurse Practitioner Adult Health
DX: E78.2 Mixed hyperlipidemia (principal); I10 Essential (primary) hypertension; I48.91 Unspecified atrial fibrillation; Z13.1 Encounter for screening for diabetes mellitus; Z13.29 Encounter for screening for other suspected endocrine disorder; Z79.899 Other long term (current) drug therapy

== ENCOUNTER 2022-07-14 19:52 | Emergency (ER) | payer MEDICARE, BC ==
[~2022-07-14] VITALS: Ht 180.3 cm; Wt 125.0 kg
[2022-07-14 20:00] VITALS: BP 109/68
[2022-07-14] MEDS ORDERED: TRAM50TA2 PO (20:11)
[2022-07-14] MEDS ORDERED: MORPHINE 4 MG/ML 1ML VIAL/SYRINGE IV ONE (22:25)
[2022-07-14 22:46] LABS: BASO % 0.1 % (0.0-1.0); EOS % 0.4 % (0.0-3.0); HEMATOCRIT 40.4 % (42.0-52.0); HEMOGLOBIN 13.3 g/dl (13.5-17.5); LYMPH # 1.2 10^3/uL (1.5-5.0); LYMPH % 12.6 % (24.0-44.0); MEAN CORPUSCULAR HEMOGLOBIN 31.1 pg (27.0-33.0); MEAN CORPUSCULAR HGB CONC 32.9 g/dl (32.0-36.5); MEAN CORPUSCULAR VOLUME 94.6 fl (80.0-96.0); MONO # 0.5 10^3/uL (0.0-0.8); MONO % 5.8 % (2.0-8.0); NEUTROPHILS # 7.4 10^3/uL (1.5-8.5); NEUTROPHILS % 80.6 % (36.0-66.0); PLATELET COUNT, AUTOMATED 141 10^3/uL (150-450); RED BLOOD COUNT 4.27 10^6/uL (4.30-6.10); WHITE BLOOD COUNT 9.1 10^3/uL (4.0-10.0)
[2022-07-15] MEDS ORDERED: HYDR-4571 PO (00:04)
[2022-07-15] MEDS ORDERED: PERCOCET 5MG/325MG TAB PO ONE (00:30)
== END 2022-07-15 01:04 | disposition home or self-care (01) ==
LOC: M ED 19:52
DX: S42.202A Unspecified fracture of upper end of left humerus, initial encounter for closed fracture (principal); W19.XXXA Unspecified fall, initial encounter; Y92.89 Other specified places as the place of occurrence of the external cause; I48.91 Unspecified atrial fibrillation; I10 Essential (primary) hypertension; K21.9 Gastro-esophageal reflux disease without esophagitis; M54.9 Dorsalgia, unspecified; G47.33 Obstructive sleep apnea (adult) (pediatric); F41.9 Anxiety disorder, unspecified; F32.9 Major depressive disorder, single episode, unspecified; Z98.84 Bariatric surgery status; F17.290 Nicotine dependence, other tobacco product, uncomplicated; F10.10 Alcohol abuse, uncomplicated; Z79.82 Long term (current) use of aspirin; Z79.899 Other long term (current) drug therapy
CPT/HCPCS: 73030; 73060; 73080; 80047; 85025; 87635; 93005; 96374; 99284; J2270

== ENCOUNTER → 2022-07-22 | Outpatient (CLI) | payer MEDICARE, BC ==
[~2022-07-22] MED LIST changes: +HYDR-4571 PO; +TRAM50TA2 PO
== END ==
LOC: M SOG 09:23
PROVIDERS: ATTEND Physician Assistant
DX: S42.212A Unspecified displaced fracture of surgical neck of left humerus, initial encounter for closed fracture (principal); X58.XXXA Exposure to other specified factors, initial encounter; Y92.9 Unspecified place or not applicable; Y93.9 Activity, unspecified; Y99.9 Unspecified external cause status

== ENCOUNTER → 2022-08-02 | Outpatient (CLI) | payer MEDICARE, BC | LOC: M SOG 13:21 | PROVIDERS: ATTEND Orthopaedic Surgery Hand Surgery | DX: S42.202A Unspecified fracture of upper end of left humerus, initial encounter for closed fracture (principal); X58.XXXA Exposure to other specified factors, initial encounter; Y92.9 Unspecified place or not applicable; Y93.9 Activity, unspecified; Y99.9 Unspecified external cause status ==

== ENCOUNTER 2022-08-19 09:23 | Outpatient (RCR) | payer MEDICARE, BC | END 2022-08-26 23:59 | disposition home or self-care (01) | LOC: M PT 09:23 | PROVIDERS: ATTEND Orthopaedic Surgery Hand Surgery | DX: S42.202A Unspecified fracture of upper end of left humerus, initial encounter for closed fracture (principal); X58.XXXA Exposure to other specified factors, initial encounter; Y92.9 Unspecified place or not applicable; Y93.9 Activity, unspecified; Y99.9 Unspecified external cause status ==

== ENCOUNTER 2022-09-06 09:11 | Outpatient (RCR) | payer MEDICARE, BC | END 2022-09-25 | LOC: M PT 09:11 | PROVIDERS: ATTEND Orthopaedic Surgery Hand Surgery | DX: M25.512 Pain in left shoulder (principal) ==

== ENCOUNTER 2022-10-24 10:41 | Outpatient (RCR) | payer MEDICARE, BC | END 2022-10-26 | LOC: M PT 10:41 | PROVIDERS: ATTEND Orthopaedic Surgery Hand Surgery | DX: M25.512 Pain in left shoulder (principal) ==

== ENCOUNTER → 2022-11-13 | Outpatient (CLI) | payer MEDICARE, BC ==
[2022-11-13 13:19] LABS: HEMATOCRIT 45.6 % (42.0-52.0); HEMOGLOBIN 14.6 g/dl (13.5-17.5); MEAN CORPUSCULAR HEMOGLOBIN 30.7 pg (27.0-33.0); PLATELET COUNT, AUTOMATED 161 10^3/uL (150-450); RED BLOOD COUNT 4.75 10^6/uL (4.30-6.10); WHITE BLOOD COUNT 5.9 10^3/uL (4.0-10.0)
[2022-11-13 13:46] LABS: MAGNESIUM LEVEL 2.1 MG/DL (1.8-2.4)
[2022-11-13 13:46] LABS: HEMOGLOBIN A1c 5.3 % (4.0-6.0)
[2022-11-13 13:47] LABS: THYROID STIMULATING HORMONE 1.109 uIU/ML (0.55-4.78)
[2022-11-13 13:48] LABS: ALKALINE PHOSPHATASE 146 U/L (46-116); ALT/SGPT 25 U/L (7.0-40); AST/SGOT 29 U/L (<34); BILIRUBIN,TOTAL 0.8 MG/DL (0.3-1.2); BLOOD UREA NITROGEN 17 MG/DL (9-23); CALCIUM LEVEL 9.2 MG/DL (8.3-10.6); CARBON DIOXIDE LEVEL 30 MMOL/L (20-31); CHLORIDE LEVEL 104 MMOL/L (98-107); CHOLESTEROL LEVEL 148 MG/DL (<200); CHOLESTEROL RISK RATIO 2.46 (<5); CREATININE FOR GFR 1.17 MG/DL (0.70-1.30); GLOMERULAR FILTRATION RATE > 60.0 (>42); GLUCOSE, FASTING 94 MG/DL (74-106); HDL CHOLESTEROL 60.1 MG/DL (>40); LDL CHOLESTEROL 70.9 MG/DL (<100); NON-HDL-C 88 MG/DL; POTASSIUM SERUM 4.4 MMOL/L (3.5-5.1); SODIUM LEVEL 141 MMOL/L (136-145); TRIGLYCERIDES LEVEL 85 MG/DL (<150)
== END ==
LOC: M PLALAB 11:01
PROVIDERS: ATTEND Nurse Practitioner Adult Health
DX: I48.91 Unspecified atrial fibrillation (principal); Z13.1 Encounter for screening for diabetes mellitus; I10 Essential (primary) hypertension; E78.2 Mixed hyperlipidemia; Z13.29 Encounter for screening for other suspected endocrine disorder

== ENCOUNTER → 2022-11-19 | Outpatient (CLI) | payer MEDICARE, BC | LOC: M SOG 11:29 | PROVIDERS: ATTEND Orthopaedic Surgery Hand Surgery | DX: S42.202D Unspecified fracture of upper end of left humerus, subsequent encounter for fracture with routine healing (principal) ==

== ENCOUNTER → 2023-01-16 | Outpatient (CLI) | payer MEDICARE, BC | LOC: M SOG 08:13 | PROVIDERS: ATTEND Physician Assistant | DX: S42.202D Unspecified fracture of upper end of left humerus, subsequent encounter for fracture with routine healing (principal); Y93.9 Activity, unspecified; Y92.9 Unspecified place or not applicable ==

== ENCOUNTER → 2023-01-31 | Outpatient (CLI) | payer MEDICARE, BC | LOC: M RAD 07:20 | PROVIDERS: ATTEND Nurse Practitioner Adult Health | DX: Z12.2 Encounter for screening for malignant neoplasm of respiratory organs (principal); F17.210 Nicotine dependence, cigarettes, uncomplicated; J84.10 Pulmonary fibrosis, unspecified; R91.1 Solitary pulmonary nodule ==

== ENCOUNTER 2023-07-04 10:17 | Day surgery (SDC) | payer MEDICARE, BC ==
[~2023-07-04] VITALS: Ht 180.3 cm; Wt 120.2 kg
[~2023-07-04 10:17] MED LIST changes: -LOSA100T45 PO; +LOSA100T46 PO; -MISO200T56 PO; +MISO200T83 PO; +NS 1,000 ML IV ONE
[2023-07-04] MEDS ORDERED: propofoL 200 MG/20 ML VIAL As Ordered ONE ×2 (11:30→11:48)
[2023-07-04] MEDS ORDERED: LIDOCAINE 2% 100MG/5ML SDV (FOR ANES.) As Ordered ONE (11:30)
[2023-07-04] MEDS ORDERED: GLYCOPYRROLATE INJ 0.2 MG/ML 2 ML VIAL As Ordered ONE (11:30)
[2023-07-04 12:18] VITALS: TEMP 96.1
[2023-07-04 12:44] VITALS: BP 146/92; O2SAT 99
== END 2023-07-04 12:46 | disposition home or self-care (01) ==
LOC: M OPP 10:17
PROVIDERS: ATTEND Internal Medicine Gastroenterology
DX: Z86.010 Personal history of colon polyps (principal); K63.5 Polyp of colon; K57.30 Diverticulosis of large intestine without perforation or abscess without bleeding; K64.8 Other hemorrhoids; K31.A19 Gastric intestinal metaplasia without dysplasia, unspecified site; K22.70 Barrett's esophagus without dysplasia; Z98.0 Intestinal bypass and anastomosis status; K22.89 Other specified disease of esophagus; I10 Essential (primary) hypertension; I48.91 Unspecified atrial fibrillation; K26.9 Duodenal ulcer, unspecified as acute or chronic, without hemorrhage or perforation; M19.90 Unspecified osteoarthritis, unspecified site; F41.9 Anxiety disorder, unspecified; F32.A Depression, unspecified; G47.30 Sleep apnea, unspecified; F17.290 Nicotine dependence, other tobacco product, uncomplicated; Z79.82 Long term (current) use of aspirin; Z79.899 Other long term (current) drug therapy; Z81.8 Family history of other mental and behavioral disorders

== ENCOUNTER → 2023-11-20 | Outpatient (CLI) | payer MEDICARE, BC ==
[~2023-11-20] MED LIST changes: -NS 1,000 ML IV ONE
[2023-11-20 13:24] LABS: HEMATOCRIT 43.3 % (42.0-52.0); HEMOGLOBIN 13.7 g/dl (13.5-17.5); MEAN CORPUSCULAR HEMOGLOBIN 30.4 pg (27.0-33.0); MEAN CORPUSCULAR HGB CONC 31.6 g/dl (32.0-36.5); PLATELET COUNT, AUTOMATED 166 10^3/uL (150-450); RED BLOOD COUNT 4.51 10^6/uL (4.30-6.10); WHITE BLOOD COUNT 5.1 10^3/uL (4.0-10.0)
[2023-11-20 13:32] LABS: ALBUMIN 3.9 G/DL (3.2-5.2); ALKALINE PHOSPHATASE 126 U/L (46-116); ALT/SGPT 27 U/L (7.0-40); AST/SGOT 31 U/L (<34); BILIRUBIN,TOTAL 0.6 MG/DL (0.3-1.2); BLOOD UREA NITROGEN 16 MG/DL (9-23); CALCIUM LEVEL 9.1 MG/DL (8.3-10.6); CARBON DIOXIDE LEVEL 33 MMOL/L (20-31); CHLORIDE LEVEL 106 MMOL/L (98-107); CHOLESTEROL LEVEL 135 MG/DL (<200); CHOLESTEROL RISK RATIO 2.14 (<5); CREATININE FOR GFR 1.13 MG/DL (0.70-1.30); GLOMERULAR FILTRATION RATE > 60.0 (>42); GLUCOSE, FASTING 97 MG/DL (74-106); HDL CHOLESTEROL 62.9 MG/DL (>40); LDL CHOLESTEROL 56.5 MG/DL (<100); MAGNESIUM LEVEL 1.9 MG/DL (1.8-2.4); NON-HDL-C 72.1 MG/DL; POTASSIUM SERUM 4.2 MMOL/L (3.5-5.1); SODIUM LEVEL 142 MMOL/L (136-145); TOTAL PROTEIN 6.8 G/DL (5.7-8.2); TRIGLYCERIDES LEVEL 78 MG/DL (<150)
[2023-11-20 13:33] LABS: HEMOGLOBIN A1c 5.3 % (4.0-6.0)
[2023-11-20 13:36] LABS: FERRITIN 9.4 NG/ML (10.5-307.3)
[2023-11-20 13:37] LABS: THYROID STIMULATING HORMONE 2.158 uIU/ML (0.55-4.78)
== END ==
LOC: M PLALAB 07:53
PROVIDERS: ATTEND Nurse Practitioner Adult Health
DX: I48.91 Unspecified atrial fibrillation (principal); I10 Essential (primary) hypertension; Z13.1 Encounter for screening for diabetes mellitus; E78.2 Mixed hyperlipidemia; K21.9 Gastro-esophageal reflux disease without esophagitis; Q43.8 Other specified congenital malformations of intestine; F41.9 Anxiety disorder, unspecified; Z98.84 Bariatric surgery status; Z79.899 Other long term (current) drug therapy

== ENCOUNTER 2024-01-05 16:30 | Outpatient (CLI) | payer MEDICARE, BC ==
[~2024-01-05] VITALS: Ht 182.9 cm; Wt 115.9 kg
[2024-01-05 16:30] VITALS: BP 158/88; O2SAT 100
[~2024-01-05 16:30] MED LIST changes: +ALBUTEROL SULFATE 2.5MG/0.5ML INH NEB SOLN INH PRN; +EPINEPHrine INJ 1 MG/ML 1ML AMP IM PRN; +NS 1,000 ML IV SCH; +diphenhydrAMINE 50MG/ML VIAL IV PRN; +methylPREDNISolone 125MG 2ML VIAL IV PRN
[2024-01-05] MEDS: FERRIC CARBOXYMALTOSE INJ 750 MG in NS 250 ML (>50kg) IV ONE (16:34)
[2024-01-05 17:50] VITALS: BP 127/85; O2SAT 99
== END 2024-01-05 17:50 ==
LOC: M INFU 16:30
PROVIDERS: ATTEND Nurse Practitioner Adult Health
DX: D50.9 Iron deficiency anemia, unspecified (principal)
CPT/HCPCS: 96365; J1439

== ENCOUNTER → 2024-04-21 | Outpatient (CLI) | payer MEDICARE, BC ==
[~2024-04-21] MED LIST changes: -ALBUTEROL SULFATE 2.5MG/0.5ML INH NEB SOLN INH PRN; -EPINEPHrine INJ 1 MG/ML 1ML AMP IM PRN; -NS 1,000 ML IV SCH; -diphenhydrAMINE 50MG/ML VIAL IV PRN; -methylPREDNISolone 125MG 2ML VIAL IV PRN
== END ==
LOC: M PLAIMG 08:00
PROVIDERS: ATTEND Nurse Practitioner Adult Health
DX: E78.2 Mixed hyperlipidemia (principal); Z53.9 Procedure and treatment not carried out, unspecified reason

== ENCOUNTER → 2024-05-03 | Outpatient (REF) | payer MEDICARE, BC | LOC: M SFHCDERM 07:52 | PROVIDERS: ATTEND Physician Assistant | DX: D04.4 Carcinoma in situ of skin of scalp and neck (principal) ==

== ENCOUNTER → 2024-05-03 | Outpatient (CLI) | payer MEDICARE, BC ==
[2024-05-03 10:59] LABS: HEMATOCRIT 47.4 % (42.0-52.0); HEMOGLOBIN 15.5 g/dl (13.5-17.5); MEAN CORPUSCULAR HEMOGLOBIN 33.1 pg (27.0-33.0); MEAN CORPUSCULAR HGB CONC 32.7 g/dl (32.0-36.5); MEAN CORPUSCULAR VOLUME 101.3 fl (80.0-96.0); PLATELET COUNT, AUTOMATED 132 10^3/uL (150-450); RED BLOOD COUNT 4.68 10^6/uL (4.30-6.10)
[2024-05-03 11:25] LABS: ALBUMIN 3.9 G/DL (3.2-5.2); ALKALINE PHOSPHATASE 147 U/L (46-116); ALT/SGPT 29 U/L (7.0-40); AST/SGOT 32 U/L (<34); BILIRUBIN,TOTAL 0.9 MG/DL (0.3-1.2); BLOOD UREA NITROGEN 15 MG/DL (9-23); CALCIUM LEVEL 9.1 MG/DL (8.3-10.6); CARBON DIOXIDE LEVEL 31 MMOL/L (20-31); CHLORIDE LEVEL 107 MMOL/L (98-107); CHOLESTEROL LEVEL 136 MG/DL (<200); GLOMERULAR FILTRATION RATE > 60.0 (>42); GLUCOSE, FASTING 95 MG/DL (74-106); HDL CHOLESTEROL 45.3 MG/DL (>40); LDL CHOLESTEROL 71.9 MG/DL (<100); MAGNESIUM LEVEL 2.2 MG/DL (1.8-2.4); NON-HDL-C 90.7 MG/DL; POTASSIUM SERUM 4.3 MMOL/L (3.5-5.1); SODIUM LEVEL 141 MMOL/L (136-145); TOTAL PROTEIN 6.8 G/DL (5.7-8.2); TRIGLYCERIDES LEVEL 94 MG/DL (<150)
[2024-05-03 11:29] LABS: THYROID STIMULATING HORMONE 1.826 uIU/ML (0.55-4.78)
[2024-05-03 12:06] LABS: HEMOGLOBIN A1c 5.1 % (4.0-6.0)
== END ==
LOC: M PLALAB 08:54
PROVIDERS: ATTEND Nurse Practitioner Adult Health
DX: E78.2 Mixed hyperlipidemia (principal); I48.91 Unspecified atrial fibrillation; I10 Essential (primary) hypertension; Z13.29 Encounter for screening for other suspected endocrine disorder; Z13.1 Encounter for screening for diabetes mellitus

== ENCOUNTER → 2024-06-30 | Outpatient (CLI) | payer MEDICARE, BC | LOC: M CARPUL 11:03 | PROVIDERS: ATTEND Internal Medicine Cardiovascular Disease | DX: I35.1 Nonrheumatic aortic (valve) insufficiency (principal); I48.21 Permanent atrial fibrillation; I11.9 Hypertensive heart disease without heart failure ==

== ENCOUNTER → 2024-07-02 | Outpatient (CLI) | payer MEDICARE, BC | LOC: M RAD 10:40 | PROVIDERS: ATTEND Nurse Practitioner Adult Health | DX: Z12.2 Encounter for screening for malignant neoplasm of respiratory organs (principal); Z87.891 Personal history of nicotine dependence; R91.1 Solitary pulmonary nodule; J84.10 Pulmonary fibrosis, unspecified; I70.0 Atherosclerosis of aorta; I25.10 Atherosclerotic heart disease of native coronary artery without angina pectoris; Q79.0 Congenital diaphragmatic hernia ==

== ENCOUNTER → 2024-11-19 | Outpatient (CLI) | payer MEDICARE ==
[~2024-11-19] MED LIST changes: +[UNRECOGNIZED DRUG - CODE] PO; -[UNRECOGNIZED DRUG - CODE] PO
[2024-11-19 17:20] LABS: BLOOD UREA NITROGEN 20 MG/DL (9-23); CALCIUM LEVEL 9.1 MG/DL (8.3-10.6); CARBON DIOXIDE LEVEL 32 MMOL/L (20-31); CHLORIDE LEVEL 105 MMOL/L (98-107); CREATININE FOR GFR 1.24 MG/DL (0.70-1.30); GLOMERULAR FILTRATION RATE > 60.0 (>42); GLUCOSE, FASTING 67 MG/DL (74-106); POTASSIUM SERUM 4.3 MMOL/L (3.5-5.1); SODIUM LEVEL 145 MMOL/L (136-145)
== END ==
LOC: M PLALAB 13:47
PROVIDERS: ATTEND Nurse Practitioner Family
DX: I48.21 Permanent atrial fibrillation (principal)

== ENCOUNTER → 2024-12-13 | Outpatient (CLI) | payer MEDICARE ==
[2024-12-13 14:20] LABS: HEMATOCRIT 45.2 % (42.0-52.0); HEMOGLOBIN 14.9 g/dl (13.5-17.5); MEAN CORPUSCULAR HEMOGLOBIN 33.3 pg (27.0-33.0); MEAN CORPUSCULAR VOLUME 101.1 fl (80.0-96.0); PLATELET COUNT, AUTOMATED 135 10^3/uL (150-450); RED BLOOD COUNT 4.47 10^6/uL (4.30-6.10); WHITE BLOOD COUNT 4.8 10^3/uL (4.0-10.0)
[2024-12-13 14:42] LABS: ALBUMIN 3.9 G/DL (3.2-5.2); ALKALINE PHOSPHATASE 121 U/L (40-129); ALT/SGPT 27 U/L (7.0-40); AST/SGOT 32 U/L (<34); BILIRUBIN,TOTAL 0.7 MG/DL (0.3-1.2); BLOOD UREA NITROGEN 20 MG/DL (9-23); CALCIUM LEVEL 9.3 MG/DL (8.3-10.6); CARBON DIOXIDE LEVEL 31 MMOL/L (20-31); CHLORIDE LEVEL 102 MMOL/L (98-107); CHOLESTEROL LEVEL 141 MG/DL (<200); CHOLESTEROL RISK RATIO 2.17 (<5); CREATININE FOR GFR 1.09 MG/DL (0.70-1.30); FERRITIN 91.3 NG/ML (10.5-307.3); GLOMERULAR FILTRATION RATE > 60.0 (>42); GLUCOSE, FASTING 106 MG/DL (74-106); HDL CHOLESTEROL 64.7 MG/DL (>40); HEMOGLOBIN A1c 5.1 % (4.0-6.0); LDL CHOLESTEROL 61.3 MG/DL (<100); MAGNESIUM LEVEL 2.2 MG/DL (1.8-2.4); NON-HDL-C 76.3 MG/DL; POTASSIUM SERUM 4.3 MMOL/L (3.5-5.1); SODIUM LEVEL 144 MMOL/L (136-145); THYROID STIMULATING HORMONE 2.424 uIU/ML (0.55-4.78); TOTAL PROTEIN 7.1 G/DL (5.7-8.2); TRIGLYCERIDES LEVEL 75 MG/DL (<150)
== END ==
LOC: M PLALAB 09:58
PROVIDERS: ATTEND Nurse Practitioner Adult Health
DX: I48.91 Unspecified atrial fibrillation (principal); I10 Essential (primary) hypertension; Z13.1 Encounter for screening for diabetes mellitus; E78.2 Mixed hyperlipidemia; Z13.29 Encounter for screening for other suspected endocrine disorder

== ENCOUNTER → 2025-01-24 | Outpatient (REF) | payer MEDICARE | LOC: M LAB REF 14:10 | PROVIDERS: ATTEND Student in an Organized Health Care Education/Training Program | DX: R30.0 Dysuria (principal) ==

== ENCOUNTER → 2025-10-10 | Outpatient (CLI) | payer MEDICARE ==
[2025-10-10 10:40] LABS: PLATELET COUNT, AUTOMATED 166 10^3/uL (150-450)
[2025-10-10 10:43] LABS: ALT/SGPT 28.0 U/L (7.0-40); AST/SGOT 38.0 U/L (<34); CALCIUM LEVEL 8.8 MG/DL (8.3-10.6); CARBON DIOXIDE LEVEL 32.0 MMOL/L (20-31); CHLORIDE LEVEL 107.0 MMOL/L (98-107); CHOLESTEROL LEVEL 130.0 MG/DL (<200); CHOLESTEROL RISK RATIO 2.24 (<5); CREATININE FOR GFR 1.2 MG/DL (0.70-1.30); GLOMERULAR FILTRATION RATE 62.7 (>42); LDL CHOLESTEROL 59.6 MG/DL (<100); MAGNESIUM LEVEL 2.2 MG/DL (1.8-2.4); NON-HDL-C 72.0 MG/DL; POTASSIUM SERUM 4.5 MMOL/L (3.5-5.1); SODIUM LEVEL 143.0 MMOL/L (136-145); TRIGLYCERIDES LEVEL 62.0 MG/DL (<150)
[2025-10-10 10:47] LABS: FREE T4 1.12 NG/DL (0.89-1.76)
[2025-10-10 11:02] LABS: ESTIMATED AVERAGE GLUCOSE 105.0 MG/DL (60-110)
== END ==
LOC: M PLALAB 08:35
PROVIDERS: ATTEND Nurse Practitioner Adult Health
DX: M25.551 Pain in right hip (principal); D75.89 Other specified diseases of blood and blood-forming organs; Z13.1 Encounter for screening for diabetes mellitus; E78.2 Mixed hyperlipidemia; I48.91 Unspecified atrial fibrillation; I10 Essential (primary) hypertension